=== PATIENT | male | born 1990 | race Native Hawaiian/Other Pacific Islander ===

== ENCOUNTER 2016-06-14 18:35 | Emergency (ER) | payer OTHER ==
[~2016-06-14] VITALS: Ht 182.9 cm; Wt 72.6 kg
[~2016-06-14 18:35] MED LIST: MELOXICAM7.5 MG OR; NOVOLOG SC
[2016-06-14] MEDS ORDERED: HUMALOG KWI100 MG/ML SC (18:59)
[2016-06-14] MEDS ORDERED: NOVOLIN N1 ML SC (18:59)
[2016-06-14 21:03] VITALS: BP 152/90; TEMP 98
== END 2016-06-14 21:07 | disposition home or self-care (01) ==
LOC: ED 18:35
DX: S62.306A Unspecified fracture of fifth metacarpal bone, right hand, initial encounter for closed fracture (principal); W01.198A Fall on same level from slipping, tripping and stumbling with subsequent striking against other object, initial encounter; Y92.098 Other place in other non-institutional residence as the place of occurrence of the external cause
CPT/HCPCS: 99283

== ENCOUNTER 2016-07-24 21:51 | Emergency (ER) | payer OTHER ==
[~2016-07-24] VITALS: Ht 182.9 cm; Wt 72.1 kg
[~2016-07-24 21:51] MED LIST changes: +HUMALOG KWI100 MG/ML SC; +NOVOLIN N1 ML SC
[2016-07-24 23:08] VITALS: BP 148/72; TEMP 98.2
== END 2016-07-24 23:09 | disposition home or self-care (01) ==
LOC: ED 21:51
DX: R22.42 Localized swelling, mass and lump, left lower limb (principal)
CPT/HCPCS: 99283

== ENCOUNTER 2017-04-01 05:10 | Emergency (ER) | payer OTHER ==
[~2017-04-01] VITALS: Ht 182.9 cm; Wt 64.4 kg
[2017-04-01 05:24] VITALS: BP 116/69; TEMP 98.7
[2017-04-01 06:02] LABS: POTASSIUM 5.2 mmol/L (3.6-5.2)
[2017-04-01 06:13] LABS: PLATELET COUNT 442 K/uL (142-355)
[2017-04-01 09:20] LABS: POTASSIUM 4.3 mmol/L (3.6-5.2)
[2017-04-01 09:49] VITALS: BP 153/90; TEMP 98.7
== END 2017-04-01 10:10 | disposition short-term general hospital (02) ==
LOC: ED 05:10 → ICU 07:48 → ED 07:48
PROVIDERS: Specialist
DX: E11.10 Type 2 diabetes mellitus with ketoacidosis without coma (principal); E86.9 Volume depletion, unspecified
CPT/HCPCS: 36415; 36600; 80048; 80053; 80307; 81000; 81002; 82805; 83735; 84100; 85007; 85027; 96361; 96365; 96375; 99285; J1815; J1885; J2405; J3490

== ENCOUNTER 2017-04-01 10:15 | Outpatient (CLI) | payer OTHER | END 2017-04-01 11:25 | disposition short-term general hospital (02) | LOC: AMB 10:15 | DX: E11.10 Type 2 diabetes mellitus with ketoacidosis without coma (principal); E86.9 Volume depletion, unspecified | CPT/HCPCS: 99284; A0425; A0429 ==

== ENCOUNTER 2018-03-23 13:25 | Emergency (ER) | payer OTHER ==
[~2018-03-23] VITALS: Ht 182.9 cm; Wt 72.6 kg
[2018-03-23 14:16] VITALS: TEMP 98
[2018-03-23 14:18] VITALS: BP 148/78
== END 2018-03-23 14:17 | disposition home or self-care (01) ==
LOC: ED 13:25
DX: K04.7 Periapical abscess without sinus (principal)
CPT/HCPCS: 96372; 99282; J2270; J2405

== ENCOUNTER 2018-07-21 13:55 | Emergency (ER) | payer OTHER ==
[~2018-07-21] VITALS: Ht 182.9 cm; Wt 72.6 kg
[2018-07-21 15:11] LABS: PLATELET COUNT 264 K/uL (142-355)
[2018-07-21 15:27] LABS: POTASSIUM 4.5 mmol/L (3.6-5.2)
[2018-07-21 19:11] VITALS: BP 140/81; TEMP 98.2
== END 2018-07-21 19:13 | disposition home or self-care (01) ==
LOC: ED 13:55
PROVIDERS: Family Medicine
DX: E11.65 Type 2 diabetes mellitus with hyperglycemia (principal); Z79.4 Long term (current) use of insulin; L03.114 Cellulitis of left upper limb; F15.10 Other stimulant abuse, uncomplicated
CPT/HCPCS: 36415; 80053; 80307; 81000; 85027; 96361; 96365; 96372; 99284; J0696; J1815; J1885

== ENCOUNTER 2018-09-09 11:50 | Inpatient (IN) | payer OTHER ==
[2018-09-09] VITALS (27 sets, daily range): BP systolic 133–158; BP diastolic 92–108; TEMP 97.9–98.7; Ht 190.5 cm; Wt 61.0 kg
[~2018-09-09] VITALS: Ht 190.5 cm; Wt 61.0 kg
[2018-09-09] MEDS ORDERED: INSUINJ20 SC (12:17)
[2018-09-09 13:06] LABS: PLATELET COUNT 310 K/uL (142-355)
--- NOTE | 2018-09-09 18:25 | NUR ---
ADMITTED 28 YEAR OLD MALE TO MED SURG FLOOR ROOM 1108 PT FROM ER VIA W/C TO DR PINA SERVICES DX HYPEROSMOLAR STATE. PATIENT ALERT, ORIENTED TO ROOM. IV FLUIDS NS AT 200 ML HR. VIA IV 20 GA RIGHT AC. CHECKED BLOOD SUGAR 279. WILL GIVE INSULIN ORDERED WHEN PROFILED. PT STATED THAT HE WAS HUNGERY ORDERED 1800 ADA TRAY. VITAL SIGNS T 98.3, P 74, R 20, B/P 139/94, SAT 100% ROOM AIR, 6'3" WT129.2 LBS.
--- NOTE | 2018-09-09 20:15 | NUR ---
PT AWAKE, ALERT, AND ORIENTED X4, RESP RATE NONLABORED/NORMAL, ON ROOM AIR, BS+, LUNGS CLEAR TO AUSCULTATION, 20G IV INTACT TO R AC WITH NO PROBLEMS NOTED AND NS INFUSING AT 200ML/HR, DENIES ANY PROBLEMS AT THIS TIME, NO NAUSEA NOTED, RADIAL AND PEDAL PULSES INTACT/EQUAL, ENCOURAGED TO CALL NEEDED, RAILS UP, BED IN LOW POSITION.
--- NOTE | 2018-09-09 20:20 | NUR ---
PT TAKEN TO X-RAY VIA WHEELCHAIR.
--- NOTE | 2018-09-10 00:05 | NUR ---
PT C/O SOME NAUSEA BUT NO VOMITING NOTED, GAVE ZOFRAN 4MG SLOW IVP PRN, IV INTACT WITH FLUID ONGOING, RESP RATE NONLABORED, NO S/S OF PAIN OR DISTRESS NOTED, WILL MONITOR CLOSELY, RAILS UP, BED IN LOW POSITION.
--- NOTE | 2018-09-10 00:55 | NUR ---
DENIES ANY NAUSEA SINCE ADX OF PRN MEDICATION, WILL MONITOR CLOSELY.
--- NOTE | 2018-09-10 00:57 | NUR ---
PT C/O "ACHING" PAIN TO LOWER BACK AND "ALLOVER", RATES PAIN AN "8" ON SCALE, GAVE TYLENOL 650MG PO PRN FOR PAIN, WILL MONITOR CLOSELY.
--- NOTE | 2018-09-10 01:40 | NUR ---
RESTING IN BED WITH EYES CLOSED, NO DISTRESS OR PAIN NOTED.
[2018-09-10 04:00] VITALS: BP 142/92; TEMP 98.9
--- NOTE | 2018-09-10 04:20 | NUR ---
RESTING IN BED WITH EYES CLOSED, NO S/S OF PAIN OR DISTRESS NOTED, IV INTACT WITH FLUID ONGOING, RESP RATE NONLABORED, WILL MONITOR CLOSELY, RAILS UP, BED IN LOW POSITION.
[2018-09-10 05:56] LABS: POTASSIUM 4.5 mmol/L (3.6-5.2)
[2018-09-10 08:00] VITALS: BP 146/94; TEMP 98.2
[2018-09-10 12:00] VITALS: BP 144/95; TEMP 98.3
[2018-09-10 16:00] VITALS: BP 121/79; TEMP 98.3
[2018-09-10 20:00] VITALS: BP 155/101; TEMP 98.2
[2018-09-10 23:59] VITALS: BP 140/96; TEMP 98.3
[2018-09-11 04:00] VITALS: BP 146/89; TEMP 98.6
[2018-09-11 08:09] VITALS: BP 140/89; TEMP 98.8
[2018-09-11 12:00] VITALS: BP 142/88; TEMP 98.1
[2018-09-11 16:00] VITALS: BP 131/91; TEMP 98.3
[2018-09-11 20:00] VITALS: BP 150/95; TEMP 98.4
[2018-09-12] VITALS: BP 162/90; TEMP 98.6
[2018-09-12 04:00] VITALS: BP 140/83; TEMP 98.6
--- NOTE | 2018-09-12 04:17 | NUR ---
SUGAR FREE SNAKES GIVEN
--- NOTE | 2018-09-12 05:01 | NUR ---
PT HAS BEEN AWAKE DURING THE NIGHT.
[2018-09-12 05:50] LABS: PLATELET COUNT 275 K/uL (142-355)
[2018-09-12 06:06] LABS: POTASSIUM 3.6 mmol/L (3.6-5.2)
[2018-09-12 08:00] VITALS: BP 148/97; TEMP 98.3
--- NOTE | 2018-09-12 11:03 | NUR ---
PT IV D/C'D WITH NO DISTRES NOTED, NO BLEEDING FROM THE SITE NOTED, PT DISCHARGED TO HOME VIA WALKING
== END 2018-09-12 11:03 | disposition home or self-care (01) | DRG 638 ==
LOC: ED 11:50 → MED/SURG 17:15
PROVIDERS: Emergency Medicine; ADMIT Internal Medicine
DX: E10.10 Type 1 diabetes mellitus with ketoacidosis without coma (principal); E87.0 Hyperosmolality and hypernatremia; E86.0 Dehydration; Z79.4 Long term (current) use of insulin
CPT/HCPCS: 36415; 36600; 74022; 80053; 80307; 81000; 81002; 82150; 82550; 82805; 82962; 83036; 83690; 85027; 96360; 96361; 96375; 96376; 99284; J1815; J2405; J2550; J3490

== ENCOUNTER 2020-09-07 23:45 | Emergency (ER) | payer OTHER ==
[~2020-09-07] VITALS: Ht 182.9 cm; Wt 68.0 kg
[~2020-09-07 23:45] MED LIST changes: +INSUINJ20 SC
[2020-09-08 00:40] LABS: POTASSIUM 4.2 mmol/L (3.6-5.2)
[2020-09-08 00:59] LABS: PLATELET COUNT 235 K/uL (142-355)
[2020-09-08 01:03] LABS: PARTIAL THROMBOPLASTIN TIME 25.7 SECONDS (24.5-33.6)
[2020-09-08 03:00] VITALS: BP 190/102; TEMP 97
== END 2020-09-08 03:00 | disposition home or self-care (01) ==
LOC: ED 23:45
PROVIDERS: Hospitalist
DX: S16.1XXA Strain of muscle, fascia and tendon at neck level, initial encounter (principal); E11.9 Type 2 diabetes mellitus without complications; Z79.4 Long term (current) use of insulin; S81.811A Laceration without foreign body, right lower leg, initial encounter; V59.3XXA Occupant (driver) (passenger) of pick-up truck or van injured in unspecified nontraffic accident, initial encounter; Y92.89 Other specified places as the place of occurrence of the external cause
CPT/HCPCS: 36415; 80048; 80320; 85027; 85610; 85730; 99283

== ENCOUNTER 2021-08-24 17:10 | Emergency (ER) | payer OTHER ==
[~2021-08-24] VITALS: Ht 182.9 cm; Wt 72.6 kg
[2021-08-24 17:14] VITALS: TEMP 99.8
[2021-08-24 18:34] LABS: PLATELET COUNT 258 K/uL (142-355)
[2021-08-24 18:35] LABS: POTASSIUM 4.4 mmol/L (3.6-5.2)
[2021-08-24 18:51] LABS: PARTIAL THROMBOPLASTIN TIME 21.9 SECONDS (24.5-33.6)
[2021-08-24 20:35] VITALS: BP 147/92
== END 2021-08-24 20:35 | disposition home or self-care (01) ==
LOC: ED 17:10
PROVIDERS: Hospitalist
DX: E86.0 Dehydration (principal); E11.65 Type 2 diabetes mellitus with hyperglycemia; Z79.4 Long term (current) use of insulin; K21.9 Gastro-esophageal reflux disease without esophagitis
CPT/HCPCS: 36415; 80053; 80307; 80320; 81000; 81002; 82550; 83880; 84484; 85027; 85610; 85730; 93005; 96360; 96361; 96374; 96375; 99283; 99284; J0696; J1815; J2405

== ENCOUNTER 2022-11-07 20:33 | Emergency (ER) | payer OTHER ==
[~2022-11-07] VITALS: Ht 182.9 cm; Wt 72.6 kg
[2022-11-07 20:35] VITALS: TEMP 98.8
[2022-11-07 21:06] LABS: PLATELET COUNT 305 K/uL (142-355)
[2022-11-07 21:26] LABS: POTASSIUM 2.9 mmol/L (3.6-5.2)
[2022-11-07 23:35] VITALS: BP 151/75
== END 2022-11-07 23:35 | disposition home or self-care (01) ==
LOC: ED 20:33
PROVIDERS: Family Medicine
DX: R41.82 Altered mental status, unspecified (principal); N17.9 Acute kidney failure, unspecified; E87.6 Hypokalemia; T50.905A Adverse effect of unspecified drugs, medicaments and biological substances, initial encounter; E11.319 Type 2 diabetes mellitus with unspecified diabetic retinopathy without macular edema
CPT/HCPCS: 36415; 36600; 80053; 80307; 81002; 82805; 85027; 96360; 99284

== ENCOUNTER 2022-11-11 03:15 | Emergency (ER) | payer OTHER ==
[~2022-11-11] VITALS: Ht 182.9 cm; Wt 72.6 kg
[2022-11-11 03:20] VITALS: TEMP 97.5
[2022-11-11 03:44] LABS: PLATELET COUNT 341 K/uL (142-355)
[2022-11-11 03:51] LABS: POTASSIUM 4.2 mmol/L (3.6-5.2)
[2022-11-11 04:55] VITALS: BP 129/80
== END 2022-11-11 04:55 | disposition left against medical advice (07) ==
LOC: ED 03:15
PROVIDERS: Family Medicine
DX: E16.2 Hypoglycemia, unspecified (principal); F19.10 Other psychoactive substance abuse, uncomplicated; F17.210 Nicotine dependence, cigarettes, uncomplicated
CPT/HCPCS: 36415; 80053; 85027; 96374; 99284; J7060